=== PATIENT | male | born 1955 | race Caucasian/White ===

== ENCOUNTER 2024-09-29 09:59 | Outpatient (OUT) | payer MEDICARE, OTHER, SELFPAY ==
--- NOTE | 2024-09-29 10:10 | XR_ITS ---
The [address] [address] Patient Name: NAZIA YEAGER MRN: [id number] date: 1955 Sex: M Assigned Patient Location: RAD Current Patient Location: [facility] Accession/Order Number: [id number] Exam Date: 09/29/2024 11:56 Report Date: 09/29/2024 11:56 At the request of: BEATRICE RIVERA MD Procedure: XR chest 2V Chest 2 views CLINICAL HISTORY: Chronic Cough COMPARISON: Chest 05/29/2022 FINDINGS: Heart normal in size. No consolidation pneumothorax pleural effusion or free air. XR/XR chest 2V IMPRESSION: NO ACUTE CARDIOPULMONARY ABNORMALITY. Impression dictated by: Vu Quiroz Jr., D.OGeovanna09/29/2024 11:56 AM Dictation Location: [place] [address] Electronically authenticated by: [id number] Y Date: 09/29/2024 11:56
== END 2024-09-29 10:00 | disposition home or self-care (01) ==
LOC: RAD 10:05
PROVIDERS: PCP Family Medicine; Visit Provider Family Medicine
DX: R05.3 Chronic cough (principal)
CPT/HCPCS: 71046